=== PATIENT | female | born 1970 | race African-American/Black ===

== ENCOUNTER 2020-06-09 16:39 | Observation (INO) | payer BC, OTHER ==
[2020-06-09] MEDS ORDERED: SODIUM CHLORIDE 0.9% 1,000 ML IV ONE (17:39)
--- NOTE | 2020-06-09 17:44 | ED ---
Altered Mental Status HPI - General Chief Complaint: Altered Mental Status Stated Complaint: Sent by PCP - TERI,Low BP Time Seen by Provider: 06/09/20 16:40 Source: patient Mode of arrival: ambulatory Limitations: no limitations - History of Present Illness Initial Comments: 49-year-old previously healthy female who presents to the emergency department w ith reported altered mental status. is at bedside and provides a history. He reports that he took his in to see Dr. Quach on the as she was complaining of lower extremity pain and back pain. He found the patient's blood pressure below and therefore recommended that she going to the hospital for evaluation. states that she was hospitalized from Tuesday through Tuesday at [facility]. Reports she was diagnosed with a kidney infection. She received trazodone to sleep and was discharged home on antibiotics. She was also taken off of her amlodipine for her hypertension. states that she has been taking her medications as directed. No fevers. She continues to have persistent altered mental status she was picked up from the hospital in the same condition that she has maintained. She has had incontinence of bowel and bladder. Difficulties with ambulation. Reports that it normally takes 2 people to assist her to walk. He reports her altered mental status is extremely transient nature. Reports 1 minute she will be normal and the next minute she is confused and agitated. She normally drinks alcohol daily and has not been drinking recently. Patient has had a 50 pound weight loss. He was supposed to follow up with Dr. Taylor and Dr. Griffin due to her symptoms. was overly concerned due to her increasing the declining status and therefore he took her back and is Dr. Quach's office today. Dr. White recommended transfer to the hospital - Related Data Home Medications Medication Instructions Recorded Confirmed Pantoprazole Sodium [Protonix] 40 mg PO DAILY 06/09/20 06/09/20 amLODIPine [Norvasc] 10 mg PO DAILY 06/09/20 06/09/20 Previous Rx's Medication Instructions Recorded Folic Acid 1 mg PO DAILY #30 tablet 06/12/20 Multivitamins, Thera [Multivitamin 1 tab PO DAILY #30 tablet 06/12/20 (formulary)] Thiamine [Vitamin B-1] 100 mg PO DAILY #30 tablet 06/12/20 Allergies Allergy/AdvReac Type Severity Reaction Status Date / Time No Known Allergies Allergy Verified 06/09/20 18:24 Review of Systems ROS Statement: Those systems with pertinent positive or pertinent negative responses have been documented in the HPI. ROS Other: All systems not noted in ROS Statement are negative. Past Medical History Past Medical History: GERD/Reflux Additional Past Medical History / Comment(s): iron deficiency anemia, low hemoglobic, sickle cell trait History of Any Multi-Drug Resistant Organisms: None Reported Past Surgical History: Hysterectomy, Tubal Ligation Additional Past Surgical History / Comment(s): ovary cyst removed Past Anesthesia/Blood Transfusion Reactions: No Reported Reaction Past Psychological History: Depression Smoking Status: Current every day smoker Past Alcohol Use History: None Reported, Abuse, Daily, Heavy Past Drug Use History: None Reported - Past Family History Mother Family Medical History: Chest Pain / Angina, Diabetes Mellitus Additional Family Medical History / Comment(s): Implanted pacemaker; deficiency: hgb & fe Father Additional Family Medical History / Comment(s): liver cirrhosis General Exam Limitations: altered mental status General appearance: alert, in no apparent distress, anxious, cachectic Head exam: Present: atraumatic, normocephalic, normal inspection Eye exam: Present: normal appearance, PERRL, EOMI. Absent: scleral icterus, conjunctival injection, periorbital swelling ENT exam: Present: normal exam, mucous membranes moist, TM's normal bilaterally Neck exam: Present: normal inspection. Absent: tenderness, meningismus, lymphadenopathy Respiratory exam: Present: normal lung sounds bilaterally. Absent: respiratory distress, wheezes, rales, rhonchi, stridor Cardiovascular Exam: Present: normal rhythm, tachycardia, normal heart sounds. Absent: systolic murmur, diastolic murmur, rubs, gallop, clicks GI/Abdominal exam: Present: soft, normal bowel sounds. Absent: distended, tenderness, guarding, rebound, rigid Rectal exam: Present: normal rectal tone Extremities exam: Present: normal inspection, full ROM, normal capillary refill, other (5/5 strength all 4 extremities). Absent: tenderness, pedal edema, joint swelling, calf tenderness Back exam: Present: normal inspection. Absent: paraspinal tenderness, vertebral tenderness Neurological exam: Present: altered, CN II-XII intact, normal gait, reflexes normal Psychiatric exam: Present: agitated, flat affect Skin exam: Present: warm, dry, intact, normal color. Absent: rash Course Vital Signs 06/09/20 06/09/20 06/09/20 16:40 19:05 19:50 Temperature 98 F Pulse Rate 107 H 85 87 Respiratory 18 16 16 Rate Blood Pressure 97/66 104/80 111/78 O2 Sat by Pulse 99 99 99 Oximetry 06/09/20 20:00 Temperature Pulse Rate 86 Respiratory 16 Rate Blood Pressure 118/79 O2 Sat by Pulse 99 Oximetry Medical Decision Making - Medical Decision Making Upon arrival patient is placed into room 1. A thorough history and physical exam was performed. Patient does follow all commands appropriately. Has strength in all 4 extremities. IV is placed. Laboratory studies were conducted. As the patient does report to pain along her entire cervical, thoracic and lumbar spine I did order CT with contrast. CT of the brain is also ordered as well as a CT of the abdomen because of reported abdominal pain and incontinence. Laboratory studies are reviewed. Sed rate 62. Potassium low at 2.9. Urinalysis continues to demonstrate 36 white blood cells and large leukocyte Estrace. Rare bacteria. This is a straight cath specimen as the patient is reporting incontinence. UDS is negative. Salicylates, acetaminophen and alcohol negative. Coronavirus not detected. Review the imaging is performed. Abdomen and pelvis demonstrates fatty infiltration of the liver with small amount of free fluid in the cul-de-sac. CT of the cervical thoracic and lumbar spine demonstrates no acute findings. Chest x-ray is clear for any cardiopulmonary process. CT of the brain demonstrates white matter hypodensity right posterior parietal lobe probably due to chronic small vessel ischemia. Patient is reevaluated and remained stable in the emergency department. She is given a dose of Rocephin because of her persistent abnormal urinalysis. Potassium is replaced. I did discuss the patient's care with Dr. Wihte. I w ill place neurology on consultation. Patient agreed to the treatment and was sent to the floor in stable condition - Lab Data Result diagrams: 06/12/20 07:04 06/12/20 07:04 Lab Results 06/09/20 06/09/20 06/09/20 Range/Units 17:22 17:22 17:22 WBC 8.9 (3.8-10.6) k/uL RBC 3.51 L (3.80-5.40) m/uL Hgb 10.9 L (11.4-16.0) gm/dL Hct 33.3 L (34.0-46.0) % MCV 94.9 (80.0-100.0) fL MCH 31.1 (25.0-35.0) pg MCHC 32.7 (31.0-37.0) g/dL RDW 12.9 (11.5-15.5) % Plt Count 381 (150-450) k/uL MPV 7.3 Neutrophils % 64 % Lymphocytes % 26 % Monocytes % 3 % Eosinophils % 5 % Basophils % 1 % Neutrophils # 5.7 (1.3-7.7) k/uL Lymphocytes # 2.3 (1.0-4.8) k/uL Monocytes # 0.3 (0-1.0) k/uL Eosinophils # 0.4 (0-0.7) k/uL Basophils # 0.1 (0-0.2) k/uL ESR 62 H (0-20) mm/hr PT 11.5 (9.0-12.0) sec INR 1.1 (<1.2) APTT 24.1 (22.0-30.0) sec Sodium (137-145) mmol/L Potassium (3.5-5.1) mmol/L Chloride (98-107) mmol/L Carbon Dioxide (22-30) mmol/L Anion Gap mmol/L BUN (7-17) mg/dL Creatinine (0.52-1.04) mg/dL Est GFR (CKD-EPI)AfAm (>60 ml/min/1.73 sqM) Est GFR (CKD-EPI)NonAf (>60 ml/min/1.73 sqM) Glucose (74-99) mg/dL POC Glucose (mg/dL) (75-99) mg/dL POC Glu Sheet Sorter ID Calcium (8.4-10.2) mg/dL Total Bilirubin (0.2-1.3) mg/dL AST (14-36) U/L ALT (4-34) U/L Alkaline Phosphatase (38-126) U/L Ammonia (<30) umol/L Creatine Kinase (30-135) U/L Troponin I (0.000-0.034) ng/mL C-Reactive Protein (<10.0) mg/L Total Protein (6.3-8.2) g/dL Albumin (3.5-5.0) g/dL Urine Color Yellow Urine Appearance Clear (Clear) Urine pH 7.0 (5.0-8.0) Ur Specific [facility] 1.042 H (1.001-1.035) Urine Protein Trace H (Negative) Urine Glucose (UA) Negative (Negative) Urine Ketones 1+ H (Negative) Urine Blood Negative (Negative) Urine Nitrite Negative (Negative) Urine Bilirubin Negative (Negative) Urine Urobilinogen <2.0 (<2.0) mg/dL Ur Leukocyte Esterase Large H (Negative) Urine WBC 36 H (0-5) /hpf Ur Squamous Epith Cells 3 (0-4) /hpf Urine Bacteria Rare H (None) /hpf Urine Mucus Occasional H (None) /hpf Salicylates mg/dL Urine Opiates Screen Not Detected (NotDetected) Ur Oxycodone Screen Not Detected (NotDetected) Urine Methadone Screen Not Detected (NotDetected) Ur Propoxyphene Screen Not Detected (NotDetected) Acetaminophen ug/mL Ur Barbiturates Screen Not Detected (NotDetected) U Tricyclic Antidepress Not Detected (NotDetected) Ur Phencyclidine Scrn Not Detected (NotDetected) Ur Amphetamines Screen Not Detected (NotDetected) U Methamphetamines Scrn Not Detected (NotDetected) U Benzodiazepines Scrn Not Detected (NotDetected) Urine Cocaine Screen Not Detected (NotDetected) U Marijuana (THC) Screen Not Detected (NotDetected) Serum Alcohol mg/dL Coronavirus (PCR) (Not Detectd) 06/09/20 06/09/20 06/09/20 Range/Units 17:22 17:22 17:22 WBC (3.8-10.6) k/uL RBC (3.80-5.40) m/uL Hgb (11.4-16.0) gm/dL Hct (34.0-46.0) % MCV (80.0-100.0) fL MCH (25.0-35.0) pg MCHC (31.0-37.0) g/dL RDW (11.5-15.5) % Plt Count (150-450) k/uL MPV Neutrophils % % Lymphocytes % % Monocytes % % Eosinophils % % Basophils % % Neutrophils # (1.3-7.7) k/uL Lymphocytes # (1.0-4.8) k/uL Monocytes # (0-1.0) k/uL Eosinophils # (0-0.7) k/uL Basophils # (0-0.2) k/uL ESR (0-20) mm/hr PT (9.0-12.0) sec INR (<1.2) APTT (22.0-30.0) sec Sodium 142 (137-145) mmol/L Potassium 2.9 L (3.5-5.1) mmol/L Chloride 108 H (98-107) mmol/L Carbon Dioxide 22 (22-30) mmol/L Anion Gap 12 mmol/L BUN <2 L (7-17) mg/dL Creatinine 0.48 L (0.52-1.04) mg/dL Est GFR (CKD-EPI)AfAm >90 (>60 ml/min/1.73 sqM) Est GFR (CKD-EPI)NonAf >90 (>60 ml/min/1.73 sqM) Glucose 81 (74-99) mg/dL POC Glucose (mg/dL) (75-99) mg/dL POC Glu Sheet Sorter ID Calcium 8.7 (8.4-10.2) mg/dL Total Bilirubin 0.7 (0.2-1.3) mg/dL AST 35 (14-36) U/L ALT 13 (4-34) U/L Alkaline Phosphatase 98 (38-126) U/L Ammonia <9 (<30) umol/L Creatine Kinase 46 (30-135) U/L Troponin I <0.012 (0.000-0.034) ng/mL C-Reactive Protein 11.4 H (<10.0) mg/L Total Protein 7.1 (6.3-8.2) g/dL Albumin 3.3 L (3.5-5.0) g/dL Urine Color Urine Appearance (Clear) Urine pH (5.0-8.0) Ur Specific [facility] (1.001-1.035) Urine Protein (Negative) Urine Glucose (UA) (Negative) Urine Ketones (Negative) Urine Blood (Negative) Urine Nitrite (Negative) Urine Bilirubin (Negative) Urine Urobilinogen (<2.0) mg/dL Ur Leukocyte Esterase (Negative) Urine WBC (0-5) /hpf Ur Squamous Epith Cells (0-4) /hpf Urine Bacteria (None) /hpf Urine Mucus (None) /hpf Salicylates <1.0 mg/dL Urine Opiates Screen (NotDetected) Ur Oxycodone Screen (NotDetected) Urine Methadone Screen (NotDetected) Ur Propoxyphene Screen (NotDetected) Acetaminophen <10.0 ug/mL Ur Barbiturates Screen (NotDetected) U Tricyclic Antidepress (NotDetected) Ur Phencyclidine Scrn (NotDetected) Ur Amphetamines Screen (NotDetected) U Methamphetamines Scrn (NotDetected) U Benzodiazepines Scrn (NotDetected) Urine Cocaine Screen (NotDetected) U Marijuana (THC) Screen (NotDetected) Serum Alcohol <10 mg/dL Coronavirus (PCR) (Not Detectd) 06/09/20 06/09/20 Range/Units 19:01 19:39 WBC (3.8-10.6) k/uL RBC (3.80-5.40) m/uL Hgb (11.4-16.0) gm/dL Hct (34.0-46.0) % MCV (80.0-100.0) fL MCH (25.0-35.0) pg MCHC (31.0-37.0) g/dL RDW (11.5-15.5) % Plt Count (150-450) k/uL MPV Neutrophils % % Lymphocytes % % Monocytes % % Eosinophils % % Basophils % % Neutrophils # (1.3-7.7) k/uL Lymphocytes # (1.0-4.8) k/uL Monocytes # (0-1.0) k/uL Eosinophils # (0-0.7) k/uL Basophils # (0-0.2) k/uL ESR (0-20) mm/hr PT (9.0-12.0) sec INR (<1.2) APTT (22.0-30.0) sec Sodium (137-145) mmol/L Potassium (3.5-5.1) mmol/L Chloride (98-107) mmol/L Carbon Dioxide (22-30) mmol/L Anion Gap mmol/L BUN (7-17) mg/dL Creatinine (0.52-1.04) mg/dL Est GFR (CKD-EPI)AfAm (>60 ml/min/1.73 sqM) Est GFR (CKD-EPI)NonAf (>60 ml/min/1.73 sqM) Glucose (74-99) mg/dL POC Glucose (mg/dL) 83 (75-99) mg/dL POC Glu Sheet Sorter ID Chelly Guajardo Calcium (8.4-10.2) mg/dL Total Bilirubin (0.2-1.3) mg/dL AST (14-36) U/L ALT (4-34) U/L Alkaline Phosphatase (38-126) U/L Ammonia (<30) umol/L Creatine Kinase (30-135) U/L Troponin I (0.000-0.034) ng/mL C-Reactive Protein (<10.0) mg/L Total Protein (6.3-8.2) g/dL Albumin (3.5-5.0) g/dL Urine Color Urine Appearance (Clear) Urine pH (5.0-8.0) Ur Specific [facility] (1.001-1.035) Urine Protein (Negative) Urine Glucose (UA) (Negative) Urine Ketones (Negative) Urine Blood (Negative) Urine Nitrite (Negative) Urine Bilirubin (Negative) Urine Urobilinogen (<2.0) mg/dL Ur Leukocyte Esterase (Negative) Urine WBC (0-5) /hpf Ur Squamous Epith Cells (0-4) /hpf Urine Bacteria (None) /hpf Urine Mucus (None) /hpf Salicylates mg/dL Urine Opiates Screen (NotDetected) Ur Oxycodone Screen (NotDetected) Urine Methadone Screen (NotDetected) Ur Propoxyphene Screen (NotDetected) Acetaminophen ug/mL Ur Barbiturates Screen (NotDetected) U Tricyclic Antidepress (NotDetected) Ur Phencyclidine Scrn (NotDetected) Ur Amphetamines Screen (NotDetected) U Methamphetamines Scrn (NotDetected) U Benzodiazepines Scrn (NotDetected) Urine Cocaine Screen (NotDetected) U Marijuana (THC) Screen (NotDetected) Serum Alcohol mg/dL Coronavirus (PCR) Not Detected (Not Detectd) - EKG Data EKG Comments: EKG demonstrates a normal sinus rhythm with a ventricular rate of 83. VA interval 162. QRS 84. QTC of 477. No acute ST segment elevations or depressions Disposition Clinical Impression: Altered mental status, Bladder incontinence Disposition: ADMITTED IP TO THIS HOSP Condition: Stable Is patient prescribed a controlled substance at d/c from ED?: No Decision to Admit Reason: Admit from EC Decision Date: 06/09/20 Decision Time: 19:30
[2020-06-09 18:02] LABS: Basophils # (A) 0.1 k/uL (0-0.2); Basophils % (A) 1 %; Eosinophils # (A) 0.4 k/uL (0-0.7); Eosinophils % (A) 5 %; HCT 33.3 % (34.0-46.0); HGB 10.9 gm/dL (11.4-16.0); Lymphocytes # (A) 2.3 k/uL (1.0-4.8); Lymphocytes % (A) 26 %; MCH 31.1 pg (25.0-35.0); MCHC 32.7 g/dL (31.0-37.0); MCV 94.9 fL (80.0-100.0); Mean Platelet Volume 7.3; Monocytes # (A) 0.3 k/uL (0-1.0); Monocytes % (A) 3 %; Neutrophils # (A) 5.7 k/uL (1.3-7.7); Neutrophils % (A) 64 %; Platelet Count 381 k/uL (150-450); RBC 3.51 m/uL (3.80-5.40); RDW 12.9 % (11.5-15.5); WBC 8.9 k/uL (3.8-10.6)
[2020-06-09 18:16] LABS: ALT 13 U/L (4-34); AST 35 U/L (14-36); Acetaminophen <10.0 ug/mL; African American GFR (CKD) >90 (>60 ml/min/1.73 sqM); Albumin 3.3 g/dL (3.5-5.0); Alcohol <10 mg/dL; Alkaline Phosphatase 98 U/L (38-126); Anion Gap 12 mmol/L; Blood Urea Nitrogen <2 mg/dL (7-17); C Reactive Protein 11.4 mg/L (<10.0); Calcium 8.7 mg/dL (8.4-10.2); Carbon Dioxide 22 mmol/L (22-30); Chloride 108 mmol/L (98-107); Creatine Kinase 46 U/L (30-135); Glucose 81 mg/dL (74-99); Non-African American GFR(CKD) >90 (>60 ml/min/1.73 sqM); Potassium 2.9 mmol/L (3.5-5.1); Salicylate <1.0 mg/dL; Sodium 142 mmol/L (137-145); Total Bilirubin 0.7 mg/dL (0.2-1.3); Total Protein 7.1 g/dL (6.3-8.2)
[2020-06-09 18:17] LABS: INR 1.1 (<1.2); Partial Thromboplastin Time 24.1 sec (22.0-30.0); Prothrombin Time 11.5 sec (9.0-12.0)
[2020-06-09] MEDS ORDERED: POTASSIUM CHLORIDE ER 20 MEQ TAB.ER PO STA (18:38)
[2020-06-09] MEDS ORDERED: POTASSIUM CHLORIDE 20 MEQ in WATER FOR INJECTION 1 100ML.BAG IVPB STA (18:39)
[2020-06-09 18:48] LABS: Erythrocyte Sedimentation Rate 62 mm/hr (0-20)
--- NOTE | 2020-06-09 18:54 | CT ---
EXAMINATION TYPE: CT brain wo con DATE OF EXAM: 06/09/2020 COMPARISON: None HISTORY: confusion, weakness and generalized pain. CT DLP: 1711.2 mGycm Automated exposure control for dose reduction was used. Images obtained without contrast. There is mild cerebral atrophy. There is no mass effect nor midline shift. There is no sign of intrac ranial hemorrhage. The calvarium is intact. There is no evidence of cortical infarct. There is some m ild white matter hypodensity right posterior parietal lobe that measures 2 cm. IMPRESSION: Mild atrophy. White matter hypodensity right posterior parietal lobe probably due to chronic small vessel ischemia. No hemorrhage.
--- NOTE | 2020-06-09 18:55 | XR ---
EXAMINATION TYPE: XR chest 2V DATE OF EXAM: 06/09/2020 COMPARISON: NONE HISTORY: Altered mental status TECHNIQUE: FINDINGS: Heart and mediastinum are within normal limits. Lungs are clear of infiltrate. There is no heart failure. There are no hilar masses. There are a few scattered calcified granulomata. Bony thora x is intact. IMPRESSION: No active cardiopulmonary disease. Normal heart.
[2020-06-09 19:03] LABS: Glucose,Whole Blood 83 mg/dL (75-99)
--- NOTE | 2020-06-09 19:12 | CT ---
EXAMINATION TYPE: CT CervThorLumbar spine w con DATE OF EXAM: 06/09/2020 COMPARISON: None HISTORY: confusion, weakness and generalized pain. CT DLP: 1711.2 mGycm Automated exposure control for dose reduction was used. CONTRAST: Performed with IV Contrast, patient injected with 100 mL of Isovue 300. Images were obtained from the skull base to the S to vertebra with IV contrast. Cervical thoracic and lumbar vertebra have normal spacing and alignment. Posterior elements are intac t. There is no compression fracture. Disc spaces are fairly well-maintained. There is no evidence of thoracic paraspinal mass. I see no bony destructive process. There is no evidence of spinal stenosis. There is no lumbar paraspinal mass. Sacroiliac joints appear intact. There is 2 cm cortical cyst low er pole right kidney. The skull base is intact. There is no sign of pathologic enhancement. IMPRESSION: Negative CT scan of the cervical thoracic and lumbar spine.
--- NOTE | 2020-06-09 19:18 | CT ---
EXAMINATION TYPE: CT abdomen pelvis w con DATE OF EXAM: 06/09/2020 COMPARISON: None HISTORY: confusion, weakness and generalized pain. CT DLP: 1711.2 mGycm Automated exposure control for dose reduction was used. CONTRAST: Performed with IV Contrast, patient injected with 100 mL of Isovue 300. Images obtained from the diaphragm to the floor the pelvis with IV contrast. Lung bases are clear of consolidation. There is minimal subsegmental atelectasis. Heart size is terri l. There is some fatty infiltration of the liver. Spleen is intact. Stomach is intact. There is no pancr eatic mass. Gallbladder appears normal. There is no adrenal mass. Kidneys show satisfactory contrast opacification. There is no hydronephrosi s. There is 2 cm cortical cyst anterior lower pole right kidney. There is no retroperitoneal adenopat hy. Ureters are not dilated. Delayed images show very little contrast in the renal collecting systems . Appendix is posterior and appears normal. Bladder distends smoothly. There is no inguinal hernia. The re is tiny amount of free fluid in the pelvis. Uterus is retroverted. There is no evidence of a pelvi c mass. There is no mesenteric edema. There is no free air. There is no sign of a bowel obstruction. Intestin al pattern is fairly normal. Lumbar spine is intact. The bony pelvis appears intact. IMPRESSION: There is some fatty infiltration of the liver. Normal appendix. Small amount of free fluid in the cul-de-sac of uncertain significance. Delayed images show little contrast in the renal collecting systems that could relate to some degree of renal failure. Clinical correlation needed.
[2020-06-09 19:25] LABS: Amphetamine Screen,Urine Not Detected (NotDetected); Barbiturate Screen,Urine Not Detected (NotDetected); Benzodiazepines Screen,Urine Not Detected (NotDetected); Cocaine Screen,Urine Not Detected (NotDetected); Methadone Screen, Urine Not Detected (NotDetected); Opiate Screen,Urine Not Detected (NotDetected); Oxycodone Screen, Urine Not Detected (NotDetected); Phencyclidine Screen,Urine Not Detected (NotDetected); Tricyclic Antidepressant,Urine Not Detected (NotDetected); Urn Cannabinoid Scrn Not Detected (NotDetected)
[2020-06-09 19:27] LABS: Appearance,Urine Clear (Clear); Bacteria,Urine Rare /hpf; Bilirubin,Urine Negative (Negative); Blood,Urine Negative (Negative); Color,Urine Yellow; Glucose,Urine (UA) Negative (Negative); Ketones,Urine 1+ (Negative); Leukocyte Esterase,Urine Large (Negative); Mucus,Urine Occasional /hpf; Nitrite,Urine Negative (Negative); Protein,Urine Trace (Negative); Specific Gravity,Urine 1.042 (1.001-1.035); Squamous Epithelial Cell,Urine 3 /hpf (0-4); Urobilinogen,Urine <2.0 mg/dL (<2.0); WBC,Urine 36 /hpf (0-5)
[2020-06-09] MEDS ORDERED: cefTRIAXone IN SWFI 1,000 MG/10 ML SYRINGE IVP STA (19:29)
[2020-06-09] MEDS ORDERED: NALOXONE 0.4 MG/ML 1 ML VIAL IV PRN (19:30)
[2020-06-09 21:39] LABS: T4, Free (Free Thyroxine) 1.39 ng/dL (0.78-2.19)
[2020-06-10] MEDS ORDERED: THIAMINE 100 MG TAB PO SCH (09:00)
[2020-06-10 09:20] LABS: Basophils # (A) 0.05 X 10*3/uL (0.00-0.10); Basophils % (A) 0.6 %; Eosinophils % (A) 3.8 %; HCT 27.8 % (37.2-46.3); HGB 9.6 g/dL (12.0-15.0); Lymphocytes # (A) 2.35 X 10*3/uL (0.90-5.00); MCH 31.9 pg (27.0-32.0); MCHC 34.5 g/dL (32.0-37.0); MCV 92.4 fL (80.0-97.0); Mean Platelet Volume 10.1 fL (9.5-12.2); Monocytes # (A) 0.55 X 10*3/uL (0.20-1.00); Neutrophils # (A) 4.57 X 10*3/uL (1.80-7.70); Neutrophils % (A) 58.3 %; Platelet Count 357 X 10*3/uL (140-440); RBC 3.01 X 10*6/uL (4.10-5.20); RDW 12.5 % (11.5-14.5); WBC 7.84 X 10*3/uL (4.50-10.00)
--- NOTE | 2020-06-10 09:26 | P.CNNES ---
History of Present Illness Consult date: 06/10/20 Requesting physician: Kristen Chavez Reason for Consult: altered mental status History of Present Illness: This is a 49-year-old woman history of sickle cell trait, iron deficiency anemia and hypertension who presented to the emergency department on your 06/09/2020 for altered mental status. History is obtained from the patient and medical records. The patient was asked to be brought to the hospital by her primary [facility] (Dr. Quach). The patient has been having altered mental status since being discharged from her recent hospital visit at [facility]. Her altered mentation is transient which she fluctuates. The patient took his to see Dr. Quach on May 31, 2020 for lower extremity pain and back pain. During her visit was found that her blood pressure was low SHE was hospitalized from the Tuesday until Tuesday at [facility] and she was diagnosed with the kidney and infection. She received trazodone as well as antibiotic and was discharged home. She was also taken off of amlodipine for hypertension. She continues to have incontinence of the bladder and bowel and difficulties ambulation. As stated above her mentation fluctuates, she'll be normal for 1 minute then confused and agitated the next. According to the patient she has been having diarrhea for the past one year and it has been have been happening on a daily basis. She notified her primary doctor and she was notified to take Imodium according to her. She drinks 1 can of beer (>12 ounces) and wine on a daily basis and sometimes she stated she drinks until intoxicated. She could not tell me when her last drink was. She stated she has generalized weakness and pain throughout the body. It is documented she lost 50 pound weight loss and not sure in what of time frame. She did acknowledge she is attempting to eat more but having diarrhea for the last one year. She denied of focal weakness, visual disturbance or difficulty getting her words out. It is reported in the ED report that she is a two person assist and having difficulty ambulation. Patient was supposed to follow-up with Dr. Taylor and Dr. Patterson for her symptoms. She denies history of seizures as childhood or adult. Work-up in the hospital consisted of: Initial vitals: Blood pressure of 97/66 with a heart rate of 107, respiratory of 18, temperature of 98 Fahrenheit and pulse ox of 99% room air. CT of the head is reported as white matter hypodensity right posterior parietal lobe probably due to chronic small vessel ischemia. No hemorrhage. EKG was reported as normal sinus rhythm. Nonspecific ST abnormality. Abnormal EKG. CT cervical thoracic and lumbar spine was ordered by the primary team and it's reported as negative CT scan of the cervical thoracic and lumbar. Patient initial POC glucose is 83. Ammonia level is less than 9. TSH is 4.85 which is a slightly elevated but the free T4 is 1.39 which is normal. AST of 35 and ALT of 13. Initial potassium is 2.9 which is low. CRP is 11.4 which is elevated. ESR is 62. Urine analysis shows that the the leukocyte esterase was large, urine white blood cell is 36 urine bacteria is a rare seem is suggestive of urinary tract infection. Urine drug screen was negative. Serum alcohol was less than 10, acetaminophen less than 10 and the salicylates is less than 1.0. Review of Systems Review of system: The 12 point system was reviewed and apparent positive and negative per HPI. Past Medical History Past Medical History: GERD/Reflux Additional Past Medical History / Comment(s): iron deficiency anemia, low hemoglobic, sickle cell trait History of Any Multi-Drug Resistant Organisms: None Reported Past Surgical History: Hysterectomy, Tubal Ligation Additional Past Surgical History / Comment(s): ovary cyst removed Past Anesthesia/Blood Transfusion Reactions: No Reported Reaction Past Psychological History: Depression Smoking Status: Current every day smoker Past Alcohol Use History: None Reported, Abuse, Daily, Heavy Past Drug Use History: None Reported - Past Family History Mother Family Medical History: Chest Pain / Angina, Diabetes Mellitus Additional Family Medical History / Comment(s): Implanted pacemaker; deficiency: hgb & fe Father Additional Family Medical History / Comment(s): liver cirrhosis Medications and Allergies Home Medications Medication Instructions Recorded Confirmed Type Ibuprofen [Advil] 400 mg PO BID PRN 06/09/20 06/09/20 History Pantoprazole Sodium [Protonix] 40 mg PO DAILY 06/09/20 06/09/20 History amLODIPine [Norvasc] 10 mg PO DAILY 06/09/20 06/09/20 History Allergies Allergy/AdvReac Type Severity Reaction Status Date / Time No Known Allergies Allergy Verified 06/09/20 18:24 Physical Examination - Vital Signs Vital Signs: Vital Signs Temp Pulse Pulse Resp BP BP Pulse Ox 06/10/20 04:46 98.1 F 73 18 106/65 98 06/09/20 20:51 98.1 F 91 16 118/78 100 06/09/20 20:00 86 16 118/79 99 06/09/20 19:50 87 16 111/78 99 06/09/20 19:05 85 16 104/80 99 06/09/20 16:40 98 F 107 H 18 97/66 99 Intake and Output 06/09/20 06/10/20 06/10/20 22:59 06:59 14:59 Intake Total 1000 Balance 1000 Intake: Amount of Fluid Infused ( 1000 ml) Other: Voiding Method Diaper Incontinent # Voids 1 Weight 46.5 kg GENERAL: The patient is lying in bed who is cachectic and complaining of having generalized pain. CHEST: The heart rate is regular rate rhythm. No murmurs to auscultation. LUNG: Clear to auscultation bilaterally no wheezing noted throughout. Not labored breathing. ABDOMEN/GI: Bowel sounds present in all 4 quadrants. No tenderness to palpation throughout. NEUROLOGICAL: Higher mental function: The patient is awake, alert, oriented to self, place and time. Patient is able to identify objects such as pen, glassess and cup. Patient is following simple and complex commands. No aphasia and no neglect. Cranial nerves: The pupils are round, equal and reactive to light and a ccommodation. Visual blevins are full to confrontation throughout. Extraocular movement is intact no nystagmus is noted. Facial sensation is normal to touch throughout. The facial strength is normal throughout. Hearing is normal bilaterally to hand rub. Tongue is midline and moved [id number] without any difficulty. No dysarthria is noted. Shoulder shrug is normal bilaterally. Motor: Gait seems normal and required minimal assistance (one person assist). The strength is difficult to assess because of her generalized pain but has strength of 4+ to 5- throughout. She did not seem to have focality from limited motor strength exam. Is cachectic throughout. Cerebellum: Normal finger to nose bilaterally. Sensation: Sensation is normal to touch throughout. Reflexes (right/left): 2+ throughout except ankles are 0-1 bilaterally. Plantars are downgoing bilaterally. Results Coagulation study: PT of 11.5, INR 1.1 and PTT is 24.1. Coronavirus: Not detected. - Laboratory Findings CBC and BMP: 06/10/20 05:30 06/10/20 05:30 Abnormal Lab Findings: Abnormal Labs 06/09/20 06/09/20 06/09/20 17:22 17:22 17:22 RBC 3.51 L Hgb 10.9 L Hct 33.3 L ESR 62 H Potassium 2.9 L Chloride 108 H BUN <2 L Creatinine 0.48 L C-Reactive Protein 11.4 H Albumin 3.3 L Procalcitonin TSH Ur Specific [place] 1.042 H Urine Protein Trace H Urine Ketones 1+ H Ur Leukocyte Esterase Large H Urine WBC 36 H Urine Bacteria Rare H Urine Mucus Occasional H 06/09/20 06/09/20 19:56 19:56 RBC Hgb Hct ESR Potassium Chloride BUN Creatinine C-Reactive Protein Albumin Procalcitonin 0.10 H TSH 4.850 H Ur Specific [place] Urine Protein Urine Ketones Ur Leukocyte Esterase Urine WBC Urine Bacteria Urine Mucus Assessment and Plan Assessment: This is a 49-year-old woman that was sent by her primary care physician to the hospital for altered mental status for the last 1 week and half. She's having fluctuation of the mentation. She is also having urinary and bowel incontinence. In the last 1 week and a half she was found that to have low blood pressure. She was recently hospitalized at outside facility for UTI. Patient stated she has diarrhea for the last one year (on daily basis), drinks alcohol on daily basis. Encephalopathy unknown exact cause. One of the possibilities could be due to underlying infection UTI. Generalized weakness Chronic diarrhea (for the last one year) with significant weight loss Cachectic Urinary and bowel incontinence Urinary tract infection Acute hypokalemia Alcohol use Sickle cell trait Iron deficiency anemia Plan: CT of the head is reported as white matter hypodensity right posterior parietal lobe probably due to chronic small vessel ischemia. No hemorrhage. I ordered MRI the brain with and without gadolinium and MRI Lumbar w/ and w/o (since reported having problems with ambulation and documented as 2 person assist. But on my examination she was minimally a one person assist). I ordered vitamin B12, folate, B6 and hemoglobin A1c. I ordered a routine EEG. I'll not start the patient on antiepileptic drugs unless there is epileptiform discharges or seizure on the EEG. Because of the patient weight loss and alcohol use I started the patient on thiamine 100 mg daily. I also ordered a 2-D echo as well as a carotid duplex. I started the patient on the banana bag with the folate and thiamine. I consulted physical therapy and occupation therapy. I think the patient will benefit from a gastroenterology consult especially with this chronic diarrhea for the last 1 year but I will defer the decision to the primary team. Infection disease team has been consulted. Regarding the the patient all call use, the patient was counseled on alcohol cessation. Recommend CIWA protocol but will defer that to the primary team. I'll defer the rest of the medical management to the primary team. The plan was discussed with the patient's nurse. Thank you for the consultation. Rocky Carcamo MD Neuro-Hospitalist Time with Patient: Greater than 30
[2020-06-10 09:48] LABS: African American GFR (CKD) 140.8 (60.0-200.0); Blood Urea Nitrogen <5.0 mg/dL (9.0-27.0); Calcium 8.1 mg/dL (8.7-10.3); Carbon Dioxide 22.3 mmol/L (21.6-31.8); Chloride 109 mmol/L (96-109); Glucose 99 mg/dL (70-110); Non-African American GFR(CKD) 121.4 (60.0-200.0); Potassium 2.9 mmol/L (3.5-5.5); Sodium 144 mmol/L (135-145)
--- NOTE | 2020-06-10 11:31 | MR ---
EXAMINATION TYPE: MR brain/lspine wo/w con DATE OF EXAM: 06/10/2020 COMPARISON: CT brain 06/09/2020 HISTORY: Altered mental status, weakness in legs with incontinence, low back pain. CONTRAST: Performed utilizing 4.5 mL intravenous Gadavist gadolinium contrast. TECHNIQUE: Multiplanar, multiecho imaging on a 3.0 Malika magnet is performed through the brain. Stud y is performed within 24 hours of arrival to the hospital. The craniovertebral junction is normal. The pituitary is normal. Diffusion-weighted imaging is performed. No abnormal hyperintensity is present to suggest an acute i ntracranial infarct or acute ischemic change. There are scattered punctate areas of hyperintensity on T2 and Inversion Recovery weighted sequences which are non-specific but can be related to microvascular ischemic changes. Ventricles and sulci are appropriate for the patient age. No abnormal enhancement is evident. IMPRESSIONS: 1. Scattered deep white matter chronic appearing microvascular ischemic type changes EXAMINATION TYPE: MR brain/lspine wo/w con DATE OF EXAM: 06/10/2020 COMPARISON: None HISTORY: Altered mental status, weakness in legs with incontinence, low back pain. CONTRAST: 4.5 mL intravenous Gadavist. TECHNIQUE: Multiplanar, multisequence images of the lumbar spine were acquired. FINDINGS: Cord terminates at the T12-L1 level. Disc heights are preserved. There is normal disc hydr ation. Vertebral body alignment is normal. Note is made of some mild facet hypertrophy at the L5-S1 level. No focal disc herniations or significant disc bulges are evident. No spinal canal stenosis or neural foraminal stenosis is present. No abnormal enhancement. IMPRESSION: 1. Normal MRI lumbar spine. 2. No suspicious abnormality to account for incontinence.
[2020-06-10] MEDS: 1: MVI, ADULT NO.4 WITH VIT K 10 ML, THIAMINE 100 MG, FOLIC ACID 1 MG in SODIUM CHLORIDE IV SCH ×12 (11:38→23:28)
[2020-06-10 13:34] VITALS: BMI 16.0
--- NOTE | 2020-06-10 13:39 | P.CONS ---
History of Present Illness - Reason for Consult Consult date: 06/10/20 - History of Present Illness HISTORY OF PRESENT ILLNESS This is a 49-year-old -[place] female that was recently hospitalized at [facility] with past history of iron deficiency anemia, sickle cell trait, GERD. Patient was treated at [facility] for urinary tract infection was sent home on antibiotics. Patient is unable to recall if she took her antibiotics. She states she is confused and her would no better. She denies any headache. She states she has a little shortness of breath. Abdomen is sore. She has chronic diarrhea which she states is worse. She has less than 7 episodes per 24 hours. She denies having any dysuria. Patient has been afebrile since admission. No leukocytosis. Creatinine 0.4. Urinalysis leukoesterase large, WBCs 36 and bacteria rare. COVID-19 not detected. CAT scan of the cervical and thoracic, lumbar spine negative. CAT scan of the brain reveals chronic small vessel ischemia. Chest x-ray reveals no acute cardio pulmonary disease. Normal heart. CAT scan of the abdomen and pelvis with contrast revealed fatty infiltration of the liver. Normal appendix. Small amount of free air in the cul-de-sac of uncertain significance. Contrast in the renal system related to some degree of renal failure. MRI of the brain revealed scattered deep white matter chronic appearing microvascular ischemic changes. REVIEW OF SYSTEMS Constitutional: No fever, no chills, no night sweats. No weight change. No weakness, fatigue or lethargy. EENT: No headache. No nasal drainage or congestion. No epistaxis. No sore throat. Lungs: Reports shortness of breath, cough, no sputum production. No wheezing. Cardiovascular: No chest pain, no lower extremity edema. No lightheadedness or dizziness. No syncopal episodes. Abdominal: Reports abdominal sore. No nausea, vomiting. No diarrhea. No constipation. No loss of appetite. Genitourinary: No dysuria, increased frequency, urgency. No urinary retention. Musculoskeletal: No myalgias. No muscle weakness. Integumentary: No wounds, no lesions. No rash or pruritus. Neurologic: No aphasia. No facial droop. Reports change in mentation. Endocrine: No abnormal blood sugars. PHYSICAL EXAMINATION Gen: This is a cachectic-appearing 49-year-old -[place] female. Patient is resting bed and appears in no acute distress. VS: Afebrile, heart rate 81, blood pressure 122/79, pulse ox 100% on room air. HEENT: Head is atraumatic, normocephalic. Pupils equal, round. Sclerae is anicteric. NECK: Supple. No JVD. No lymphadenopathy. No thyromegaly. LUNGS: Clear to auscultation. No wheezes or rhonchi. No intercostal retractions. HEART: Regular rate and rhythm. No murmur. ABDOMEN: Soft. Bowel sounds are present. No masses. No tenderness. No suprapubic tenderness. EXTREMITIES: No pedal edema. No calf tenderness. NEUROLOGICAL: Patient is awake, alert and oriented x3. Cranial nerves 2 through 12 are grossly intact. ASSESSMENT Acute urinary tract infection Metabolic encephalopathy Chronic diarrhea Daily alcohol use PLAN Rocephin 1 g IV piggyback daily Urine culture in progress Follow blood culture results Stool studies have been ordered by GI Further recommendations based on patient's clinical course Thank you kindly for this consultation The above dictated assessment and findings were discussed with Dr. Arita. The impression and plan of care have been directed as dictated. Nichelle Barragan nurse practitioner acting as scribe for Dr. Arita. Past Medical History Past Medical History: GERD/Reflux Additional Past Medical History / Comment(s): iron deficiency anemia, low hemoglobic, sickle cell trait History of Any Multi-Drug Resistant Organisms: None Reported Past Surgical History: Hysterectomy, Tubal Ligation Additional Past Surgical History / Comment(s): ovary cyst removed Past Anesthesia/Blood Transfusion Reactions: No Reported Reaction Past Psychological History: Depression Smoking Status: Current every day smoker Past Alcohol Use History: None Reported, Abuse, Daily, Heavy Past Drug Use History: None Reported - Past Family History Mother Family Medical History: Chest Pain / Angina, Diabetes Mellitus Additional Family Medical History / Comment(s): Implanted pacemaker; deficiency: hgb & fe Father Additional Family Medical History / Comment(s): liver cirrhosis Medications and Allergies Home Medications Medication Instructions Recorded Confirmed Type Ibuprofen [Advil] 400 mg PO BID PRN 06/09/20 06/09/20 History Pantoprazole Sodium [Protonix] 40 mg PO DAILY 06/09/20 06/09/20 History amLODIPine [Norvasc] 10 mg PO DAILY 06/09/20 06/09/20 History Allergies Allergy/AdvReac Type Severity Reaction Status Date / Time No Known Allergies Allergy Verified 06/09/20 18:24 Physical Exam Vitals: Vital Signs Temp Pulse Pulse Resp BP BP Pulse Ox 06/10/20 11:28 97.7 F 81 16 122/79 100 06/10/20 04:46 98.1 F 73 18 106/65 98 06/09/20 20:51 98.1 F 91 16 118/78 100 06/09/20 20:00 86 16 118/79 99 06/09/20 19:50 87 16 111/78 99 06/09/20 19:05 85 16 104/80 99 06/09/20 16:40 98 F 107 H 18 97/66 99 Intake and Output 06/09/20 06/10/20 06/10/20 22:59 06:59 14:59 Intake Total 1000 Balance 1000 Intake: Amount of Fluid Infused ( 1000 ml) Other: Voiding Method Diaper Incontinent # Voids 1 # Bowel Movements 1 Weight 46.5 kg Results CBC & Chem 7: 06/10/20 05:30 06/10/20 05:30 Labs: Abnormal Lab Results - Last 24 Hours (Table) 06/09/20 06/09/20 06/09/20 Range/Units 17:22 17:22 17:22 RBC 3.51 L (3.80-5.40) m/uL Hgb 10.9 L (11.4-16.0) gm/dL Hct 33.3 L (34.0-46.0) % ESR 62 H (0-20) mm/hr Potassium 2.9 L (3.5-5.1) mmol/L Chloride 108 H (98-107) mmol/L Anion Gap (4.00-12.00) mmol/L BUN <2 L (7-17) mg/dL Creatinine 0.48 L (0.52-1.04) mg/dL Calcium (8.7-10.3) mg/dL C-Reactive Protein 11.4 H (<10.0) mg/L Albumin 3.3 L (3.5-5.0) g/dL Vitamin B12 (200.0-944.0) pg/mL Procalcitonin (0.02-0.09) ng/mL TSH (0.465-4.680) mIU/L Ur Specific [place] 1.042 H (1.001-1.035) Urine Protein Trace H (Negative) Urine Ketones 1+ H (Negative) Ur Leukocyte Esterase Large H (Negative) Urine WBC 36 H (0-5) /hpf Urine Bacteria Rare H (None) /hpf Urine Mucus Occasional H (None) /hpf 06/09/20 06/09/20 06/10/20 Range/Units 19:56 19:56 05:30 RBC 3.01 L (3.80-5.40) m/uL Hgb 9.6 L (11.4-16.0) gm/dL Hct 27.8 L (34.0-46.0) % ESR (0-20) mm/hr Potassium (3.5-5.1) mmol/L Chloride (98-107) mmol/L Anion Gap (4.00-12.00) mmol/L BUN (7-17) mg/dL Creatinine (0.52-1.04) mg/dL Calcium (8.7-10.3) mg/dL C-Reactive Protein (<10.0) mg/L Albumin (3.5-5.0) g/dL Vitamin B12 (200.0-944.0) pg/mL Procalcitonin 0.10 H (0.02-0.09) ng/mL TSH 4.850 H (0.465-4.680) mIU/L Ur Specific [place] (1.001-1.035) Urine Protein (Negative) Urine Ketones (Negative) Ur Leukocyte Esterase (Negative) Urine WBC (0-5) /hpf Urine Bacteria (None) /hpf Urine Mucus (None) /hpf 06/10/20 06/10/20 Range/Units 05:30 05:30 RBC (3.80-5.40) m/uL Hgb (11.4-16.0) gm/dL Hct (34.0-46.0) % ESR (0-20) mm/hr Potassium 2.9 L (3.5-5.1) mmol/L Chloride (98-107) mmol/L Anion Gap 12.70 H (4.00-12.00) mmol/L BUN <5.0 L (7-17) mg/dL Creatinine 0.4 L (0.52-1.04) mg/dL Calcium 8.1 L (8.7-10.3) mg/dL C-Reactive Protein (<10.0) mg/L Albumin (3.5-5.0) g/dL Vitamin B12 976.0 H (200.0-944.0) pg/mL Procalcitonin (0.02-0.09) ng/mL TSH (0.465-4.680) mIU/L Ur Specific [place] (1.001-1.035) Urine Protein (Negative) Urine Ketones (Negative) Ur Leukocyte Esterase (Negative) Urine WBC (0-5) /hpf Urine Bacteria (None) /hpf Urine Mucus (None) /hpf Microbiology - Last 24 Hours (Table) 06/09/20 17:22 Urine Culture - Preliminary Urine,Catheterized
--- NOTE | 2020-06-10 14:24 | US ---
EXAMINATION TYPE: US carotid duplex BILAT DATE OF EXAM: 06/10/2020 COMPARISON: NONE CLINICAL HISTORY: stroke. EXAM MEASUREMENTS: RIGHT: Peak Systolic Velocity (PSV) cm/sec ----- Right CCA: 66.9 ----- Right ICA: 104.0 ----- Right ECA: 87.1 ICA/CCA ratio: 1.6 RIGHT: End Diastole cm/sec ----- Right CCA: 20.8 ----- Right ICA: 41.6 ----- Right ECA: 16.2 LEFT: Peak Systolic Velocity (PSV) cm/sec ----- Left CCA: 86.9 ----- Left ICA: 106.0 ----- Left ECA: 85.7 ICA/CCA ratio: 1.2 LEFT: End Diastole cm/sec ----- Left CCA: 26.2 ----- Left ICA: 78.7 ----- Left ECA: 16.8 VERTEBRALS (direction of flow): Right Vertebral: Antegrade Left Vertebral: Antegrade Rhythm: Slight arrhythmia Bilateral wall thickening. Plaque seen in bilateral bulbs. No significant stenosis. No elevated ana ocities. IMPRESSION: Mild atheromatous plaquing without significant flow-limiting stenosis. Criteria for Assigning % of Stenosis / Diameter reduction (Estimation based on the indirect measurements of the internal carotid artery velocities (ICA PSV). 1. Normal (no stenosis)=ICA PSV < 125 cm/s: ratio < 2.0: ICA EDV<40 cm/s. 2. Less than 50% stenosis=ICA PSV < 125 cm/s: ratio < 2.0: ICA EDV<40 cm/s. 3. 50 to 69% stenosis=ICA PSV of 125 to 230 cm/s: ration 2.0 ? 4.0: ICA EDV 40-100 cm/s. 4. Greater than 70% stenosis to near occlusion= ICA PSV > 230 cm/s: ratio > 4.0: ICA EDV > 100 cm/s. 5. Near occlusion= ICA PSV velocities may be low or undetectable: variable ratio and ICA EDV. 6. Total occlusion=unable to detect flow.
[2020-06-10 15:13] LABS: Hemoglobin A1C 4.7 % (4.0-6.0)
[2020-06-10] MEDS ORDERED: Potassium Replacement Protocol 1 EACH MISC MISCELLANE PRN (16:29)
[2020-06-10] MEDS ORDERED: PEG 3350-NA SULF,BICARB,CL/KCL 4,000 ML BOTTLE PO ONE (17:00)
[2020-06-10] MEDS ORDERED: LIDOCAINE 1% (10MG/ML) FOR IV START INTRADERMA PRN (17:21)
[2020-06-10] MEDS ORDERED: LACTATED RINGERS 1,000 ML IV SCH (17:30)
[2020-06-10] MEDS: POTASSIUM CHLORIDE 10 MEQ in WATER FOR INJECTION 1 100ML.BAG IVPB SCH ×5 (17:40→23:25)
--- NOTE | 2020-06-10 18:51 | EEG ---
ELECTROENCEPHALOGRAM REPORT DATE OF SERVICE: 06/10/2020. CLINICAL HISTORY: This is a 49-year-old female with altered mental status. The video EEG is obtained to evaluate for seizure and epileptiform activity. RELEVANT MEDICATION: The patient is not on any anti-epileptic drugs. EEG TYPE: A routine 21-channel EEG is performed with video using the 10/20 electrode placement system. DESCRIPTION: Only wakefulness is obtained. During wakefulness, there is a posterior-dominant rhythm of low to moderate voltage, reactive, well modulated, of 8 to 8.5 hertz activity. There is no physiological stage II sleep seen. INTERICTAL AND ICTAL: None. ACTIVATION PROCEDURE: Photic stimulation did not evoke a positive response. There is no photic abnormalities during the photic stimulation. Hyperventilation is not performed. CLINICAL INTERPRETATION: This is a normal routine EEG. There are no focal slowing, epileptiform discharges or seizure during the EEG. Clinical correlation is recommended. JOLANTA / JIMI: [id number] / [id number]
--- NOTE | 2020-06-10 22:07 | CONS ---
CONSULTATION DATE OF DICTATION: 06/10/2020 REASON FOR CONSULTATION: Diarrhea and weight loss. HISTORY OF PRESENT ILLNESS: The patient is a 49-year-old -Swedish female admitted to the hospital because of severe diarrhea for the last one year's duration. She has been having bowel movements anywhere from 7 to 8 a day which are loose to watery in consistency, including nocturnal diarrhea, and she lost about 25 to 30 pounds since the onset of these symptoms. Apparently the patient was admitted to the [facility] about a month ago with anemia and UTI, treated with antibiotics, and was discharged home. The patient is an extremely poor historian. She does complain of cramping lower abdominal pain. Denies any rectal bleeding or melena. She thinks she lost about 25 to 30 pounds in the last one year. She does not recall being started on any new medications. No family history of inflammatory bowel disease. In the ER, she did have a CT of the abdomen and pelvis done that showed evidence of fatty liver, but otherwise it was unremarkable. Because of altered mental status she also had MRI of the brain that showed scattered deep white matter chronic changes. PAST MEDICAL HISTORY: Significant for hypertension, gastroesophageal reflux disease. HOME MEDICATIONS: Advil, Protonix and Norvasc. ALLERGIES: NONE. SOCIAL HISTORY: Chronic smoker. No alcohol use. FAMILY HISTORY: Mother had diabetes mellitus and history of pacemaker implantation. Father had liver cirrhosis. PAST SURGICAL HISTORY: Hysterectomy, tubal ligation, colonoscopy in 2016 and ovarian cyst removed. REVIEW OF SYSTEMS: CARDIOPULMONARY: She denies any chest pain or shortness of breath. GENITOURINARY: No dysuria or hematuria. MUSCULOSKELETAL: Unremarkable. SKIN: Unremarkable. ENDOCRINE: Unremarkable. PSYCHIATRIC: Unremarkable. NEUROLOGY: Some mild altered mental status which has resolved. ENT/VISION: Unremarkable. CONSTITUTIONAL: Weight loss of 25 pounds. No fever, chills, night sweats. PHYSICAL EXAMINATION: She appears comfortable. No apparent distress. Vital signs are stable. Blood pressure is 122/79, pulse rate 81, temperature 97.7. HEENT examination unremarkable. Conjunctivae pink. Sclerae anicteric. Oral cavity no lesions. NECK: No JVD or lymph node enlargement. CHEST: Clear to auscultation. HEART: Regular rate and rhythm. ABDOMEN: Soft. It was scaphoid. Mild tenderness in the left lower quadrant area. EXTREMITIES: No pedal edema. NEUROLOGIC: Alert, oriented to name and place; not to time. LABS/IMAGING: Labs done from yesterday show WBC 8.9, hemoglobin 10.9, platelets normal. Sedimentation rate is 62, potassium 2.9. BUN is 2, creatinine 0.48. AST, ALT, T- bilirubin and alkaline phosphatase are within normal limits. TSH is 4.8, free T4 is 1.39. Urinalysis: large leukocyte esterase. Coronavirus PCR is negative. CT of the abdomen and pelvis showed some fatty infiltration of the liver, but otherwise unremarkable. IMPRESSION: 1. Chronic diarrhea for the last one year's duration with progressive weight loss almost 25 to 30 pounds. The patient denies any rectal bleeding or melena. No family history of inflammatory bowel disease. CT scan of the abdomen was unremarkable with no evidence of any thickening of the colon noted. The patient does not recall being started on any new medications in the last one year. Rule out infectious colitis versus inflammatory bowel disease. 2. Urinary tract infection, on broad-spectrum antibiotics. 3. History of hypertension. 4. History of gastroesophageal reflux disease. RECOMMENDATIONS: 1. Obtain stool cultures and C difficile toxin. 2. Will proceed with EGD and colonoscopy tomorrow. I discussed with the patient risks, benefits and complications, and she is agreeable to it. Thank you for this consultation. JOLANTA / JIMI: [id number] /
[2020-06-11] MEDS: POTASSIUM CHLORIDE 10 MEQ in WATER FOR INJECTION 1 100ML.BAG IVPB SCH ×5 (00:36→11:20)
[2020-06-11 03:14] LABS: Gliadin AB IgA, Deaminated NEGATIVE (NEGATIVE); Gliadin AB IgA, Unit 9.2 U/mL; Gliadin AB IgG, Deaminated NEGATIVE (NEGATIVE)
[2020-06-11] MEDS: 1: MVI, ADULT NO.4 WITH VIT K 10 ML, THIAMINE 100 MG, FOLIC ACID 1 MG in SODIUM CHLORIDE IV SCH ×8 (06:54→20:23)
[2020-06-11] MEDS ORDERED: MAGNESIUM CITRATE 296 ML BOTTLE PO STA (07:44)
--- NOTE | 2020-06-11 08:41 | P.HPIM ---
History of Present Illness H&P Date: 06/10/20 Chief Complaint: TERI Irizarry is a 49 yo F with PMH of alcohol abuse, anemia, sickle cell trait who presented to the ED on the recommendation of her PCP with continued altered mental status and confusion. She was recently hospitalized at [facility] with abdominal pain and CT at that time showed possible pyelonephritis and pt was treated with antobiotics. She also noted at that time a weight loss of approximately 50 lbs in the past year and has been having diarrhea as well. Her notes that she has been more withdrawn and confused and answering questions inappropriately. Pt today does endorse abdominal pain and diarrhea and is otherwise feeling fine. She denies any blackouts or loss of balance. She does endorse blurry vision. She has continued to have diarrhea today. On presentation she was afebrile, vitals stable, WBC 7.8, CRP 11.3, Cr 0.4. CT abd/pelvis unr emarkable. Review of Systems All systems: negative Constitutional: Reports malaise, Reports weakness, Denies chills, Denies fever Eyes: denies blurred vision, denies pain Ears, nose, mouth and throat: Denies headache, Denies sore throat Cardiovascular: Denies chest pain, Denies shortness of breath Respiratory: Denies cough Gastrointestinal: Reports abdominal pain, Reports diarrhea, Denies nausea, Denies vomiting Genitourinary: Denies dysuria, Denies hematuria Musculoskeletal: Denies myalgias Integumentary: Denies pruritus, Denies rash Neurological: Reports as per HPI, Reports confusion, Reports weakness, Denies numbness Psychiatric: Denies anxiety, Denies depression Endocrine: Denies fatigue, Denies weight change Past Medical History Past Medical History: GERD/Reflux Additional Past Medical History / Comment(s): iron deficiency anemia, low hemoglobic, sickle cell trait History of Any Multi-Drug Resistant Organisms: None Reported Past Surgical History: Hysterectomy, Tubal Ligation Additional Past Surgical History / Comment(s): ovary cyst removed Past Anesthesia/Blood Transfusion Reactions: No Reported Reaction Past Psychological History: Depression Smoking Status: Current every day smoker Past Alcohol Use History: None Reported, Abuse, Daily, Heavy Past Drug Use History: None Reported - Past Family History Mother Family Medical History: Chest Pain / Angina, Diabetes Mellitus Additional Family Medical History / Comment(s): Implanted pacemaker; deficiency: hgb & fe Father Additional Family Medical History / Comment(s): liver cirrhosis Medications and Allergies Home Medications Medication Instructions Recorded Confirmed Type Ibuprofen [Advil] 400 mg PO BID PRN 06/09/20 06/09/20 History Pantoprazole Sodium [Protonix] 40 mg PO DAILY 06/09/20 06/09/20 History amLODIPine [Norvasc] 10 mg PO DAILY 06/09/20 06/09/20 History Allergies Allergy/AdvReac Type Severity Reaction Status Date / Time No Known Allergies Allergy Verified 06/09/20 18:24 Physical Exam Vitals: Vital Signs Temp Pulse Resp BP Pulse Ox 06/11/20 04:51 98.4 F 98 16 135/86 100 06/10/20 19:51 98.5 F 80 16 149/80 100 06/10/20 19:29 80 16 06/10/20 11:28 97.7 F 81 16 122/79 100 Intake and Output 06/10/20 06/11/20 06/11/20 22:59 06:59 14:59 Intake Total 1011.2 Balance 1011.2 Intake: Intake, IV Titration 1011.2 Amount Mvi, Adult No.4 with Vit 1011.2 K 10 ml Thiamine 100 mg Folic Acid 1 mg In Sodium Chloride 0.9% 1,000 ml @ 100 mls/hr IV .BY DURATION [facility] Rx#: [id number] Other: Voiding Method Toilet Toilet Diaper Diaper Incontinent Incontinent # Voids 3 # Bowel Movements 1 3 General: well developed thin female in NAD. Vitals reviewed HEENT: normocephalic, mucus membranes moist Neck: supple, no thyromegaly, no JVD Lymph: no cervical or axillary LAD CV: RRR, no murmur Lungs: clear throughout, normal effort Abd: soft, generalized tenderness, BS+ Neuro: withdrawn, no focal deficit, str 5/5 anne Skin: warm and dry Results CBC & Chem 7: 06/10/20 05:30 06/11/20 04:10 Labs: Abnormal Lab Results - Last 24 Hours (Table) 06/10/20 06/10/20 06/10/20 Range/Units 05:30 05:30 05:30 RBC 3.01 L (4.10-5.20) X 10*6/uL Hgb 9.6 L (12.0-15.0) g/dL Hct 27.8 L (37.2-46.3) % ESR (0-20) mm/Hr Potassium 2.9 L (3.5-5.5) mmol/L Anion Gap 12.70 H (4.00-12.00) mmol/L BUN <5.0 L (9.0-27.0) mg/dL Creatinine 0.4 L (0.6-1.5) mg/dL Calcium 8.1 L (8.7-10.3) mg/dL C-Reactive Protein (0.0-0.8) mg/dL Vitamin B12 976.0 H (200.0-944.0) pg/mL 06/10/20 06/10/20 06/11/20 Range/Units 05:30 11:15 04:10 RBC (4.10-5.20) X 10*6/uL Hgb (12.0-15.0) g/dL Hct (37.2-46.3) % ESR 65 H (0-20) mm/Hr Potassium 3.3 L (3.5-5.5) mmol/L Anion Gap (4.00-12.00) mmol/L BUN (9.0-27.0) mg/dL Creatinine (0.6-1.5) mg/dL Calcium (8.7-10.3) mg/dL C-Reactive Protein 1.3 H (0.0-0.8) mg/dL Vitamin B12 (200.0-944.0) pg/mL Microbiology - Last 24 Hours (Table) 06/10/20 17:15 Stool Culture - Preliminary Stool 06/09/20 19:45 Blood Culture - Preliminary Blood No Growth after 24 hours 06/09/20 17:22 Urine Culture - Final Urine,Catheterized Thrombosis Risk Factor Assmnt - Choose All That Apply Any of the Below Risk Factors Present?: Yes Each Factor Represents 1 point: Age 41-60 years Other Risk Factors: No Other congenital or acquired thrombophilia - If yes, enter type in comment: No Thrombosis Risk Factor Assessment Total Risk Factor Score: 1 Thrombosis Risk Factor Assessment Level: Low Risk Assessment and Plan (1) Altered mental status Current Visit: Yes Status: Acute Code(s): R41.82 - ALTERED MENTAL STATUS, UNSPECIFIED SNOMED Code(s): 975332262 (2) Abdominal pain Current Visit: Yes Status: Acute Code(s): R10.9 - UNSPECIFIED ABDOMINAL PAIN SNOMED Code(s): 79491964 (3) Diarrhea Current Visit: Yes Status: Acute Code(s): R19.7 - DIARRHEA, UNSPECIFIED SNOMED Code(s): 00637712 (4) Weight loss of more than 10% body weight Current Visit: Yes Status: Acute Code(s): R63.4 - ABNORMAL WEIGHT LOSS SNOMED Code(s): 78063315 (5) Confusion Current Visit: Yes Status: Acute Code(s): R41.0 - DISORIENTATION, UNSPECIFIED SNOMED Code(s): 286386713 Plan: 1. AMS, confusion. Neurology consult for further evaluation. Carotid doppler, MRI brain ordered 2. Abdominal pain and diarrhea with significant weight loss. GI consult. Stool studies ordered. Pt scheduled for colonoscopy 3. UTI, possible pyelonephritis, recently treated at [facility]. Start rocephin. ID consult for antibiotic management
--- NOTE | 2020-06-11 10:25 | P.PN ---
Subjective Progress Note Date: 06/11/20 HISTORY OF PRESENT ILLNESS This is a 49-year-old -[place] female that was recently hospitalized at [facility] with past history of iron deficiency anemia, sickle cell trait, GERD. Patient was treated at [facility] for urinary tract infection was sent home on antibiotics. Patient is unable to recall if she took her antibiotics. She states she is confused and her would no better. She denies any headache. She states she has a little shortness of breath. Abdomen is sore. She has chronic diarrhea which she states is worse. She has less than 7 episodes per 24 hours. She denies having any dysuria. Patient has been afebrile since admission. No leukocytosis. Creatinine 0.4. Urinalysis leukoesterase large, WBCs 36 and bacteria rare. COVID-19 not d etected. CAT scan of the cervical and thoracic, lumbar spine negative. CAT scan of the brain reveals chronic small vessel ischemia. Chest x-ray reveals no acute cardio pulmonary disease. Normal heart. CAT scan of the abdomen and pelvis with contrast revealed fatty infiltration of the liver. Normal appendix. Small amount of free air in the cul-de-sac of uncertain significance. Contrast in the renal system related to some degree of renal failure. MRI of the brain revealed scattered deep white matter chronic appearing microvascular ischemic changes. 2/3: She denies having any cough or shortness of breath. She states she has some lower abdominal left-sided pain. Patient complains of having diarrhea but she has undergone prep for EGD and colonoscopy which was scheduled for today. U nfortunately, patient was unable to finish the prep and may not be prepared for procedures. Patient has been afebrile, heart rate 98, blood pressure 135/86, pulse ox 100% on room air. Urine culture is been finalized with no growth at 18 hours. Blood culture no growth at 24 hours. Stool culture in progress. Cryptosporidium and Giardia negative. C. difficile toxin negative. PHYSICAL EXAMINATION Gen: This is a cachectic-appearing 49-year-old -Aust[place] female. Patient is resting bed and appears in no acute distress. VS: Afebrile, heart rate 81, blood pressure 122/79, pulse ox 100% on room air. HEENT: Head is atraumatic, normocephalic. Pupils equal, round. Sclerae is anicteric. NECK: Supple. No JVD. No lymphadenopathy. No thyromegaly. LUNGS: Clear to auscultation. No wheezes or rhonchi. No intercostal retractions. HEART: Regular rate and rhythm. No murmur. ABDOMEN: Soft. Bowel sounds are present. No masses. No tenderness. No suprapubic tenderness. EXTREMITIES: No pedal edema. No calf tenderness. NEUROLOGICAL: Patient is awake, alert and oriented x3. Cranial nerves 2 through 12 are grossly intact. ASSESSMENT Acute urinary tract infection Metabolic encephalopathy Chronic diarrhea Daily alcohol use PLAN Rocephin 1 g IV piggyback daily Urine culture in progress Follow blood culture results Further recommendations based on patient's clinical course Thank you kindly for this consultation The above dictated assessment and findings were discussed with Dr. Arita. The impression and plan of care have been directed as dictated. Nichelle Barragan nurse practitioner acting as scribe for Dr. Arita. Objective - Vital Signs Vital signs: Vital Signs Temp 98.4 F 06/11/20 04:51 Pulse 98 06/11/20 04:51 Resp 16 06/11/20 04:51 BP 135/86 06/11/20 04:51 Pulse Ox 100 06/11/20 04:51 Intake & Output 06/10/20 06/11/20 06/11/20 18:59 06:59 18:59 Intake Total 1011.2 Balance 1011.2 Weight 46.5 kg Intake: Intake, IV Titration 1011.2 Amount Mvi, Adult No.4 with Vit 1011.2 K 10 ml Thiamine 100 mg Folic Acid 1 mg In Sodium Chloride 0.9% 1,000 ml @ 100 mls/hr IV .BY DURATION [facility] Rx#: [id number] Other: Voiding Method Toilet Toilet Toilet Diaper Diaper Diaper Incontinent Incontinent Incontinent # Voids 3 # Bowel Movements 1 3 - Labs CBC & Chem 7: 06/10/20 05:30 06/11/20 04:10 Labs: Abnormal Lab Results - Last 24 Hours (Table) 06/10/20 06/10/20 06/10/20 Range/Units 05:30 05:30 05:30 ESR (0-20) mm/Hr Potassium 2.9 L (3.5-5.5) mmol/L Anion Gap 12.70 H (4.00-12.00) mmol/L BUN <5.0 L (9.0-27.0) mg/dL Creatinine 0.4 L (0.6-1.5) mg/dL Calcium 8.1 L (8.7-10.3) mg/dL C-Reactive Protein 1.3 H (0.0-0.8) mg/dL Vitamin B12 976.0 H (200.0-944.0) pg/mL 06/10/20 06/11/20 Range/Units 11:15 04:10 ESR 65 H (0-20) mm/Hr Potassium 3.3 L (3.5-5.5) mmol/L Anion Gap (4.00-12.00) mmol/L BUN (9.0-27.0) mg/dL Creatinine (0.6-1.5) mg/dL Calcium (8.7-10.3) mg/dL C-Reactive Protein (0.0-0.8) mg/dL Vitamin B12 (200.0-944.0) pg/mL Microbiology - Last 24 Hours (Table) 06/10/20 17:15 Stool Culture - Preliminary Stool 06/09/20 19:45 Blood Culture - Preliminary Blood No Growth after 24 hours 06/09/20 17:22 Urine Culture - Final Urine,Catheterized
[2020-06-11] MEDS ORDERED: Potassium Replacement Protocol 1 EACH MISC MISCELLANE PRN (10:54)
--- NOTE | 2020-06-11 11:34 | P.PN ---
Subjective Progress Note Date: 06/11/20 Laura Irizarry is a 49 yo F with PMH of alcohol abuse, anemia, sickle cell trait who presented to the ED on the recommendation of her PCP with continued altered mental status and confusion. She was recently hospitalized at [facility] with abdominal pain and CT at that time showed possible pyelonephritis and pt was treated with antobiotics. She also noted at that time a weight loss of approximately 50 lbs in the past year and has been having diarrhea as well. Her notes that she has been more withdrawn and confused and answering questions inappropriately. Pt today does endorse abdominal pain and diarrhea and is otherwise feeling fine. She denies any blackouts or loss of balance. She does endorse blurry vision. She has continued to have diarrhea today. On presentation she was afebrile, vitals stable, WBC 7.8, CRP 11.3, Cr 0.4. CT abd/pelvis unremarkable. 06/11/20 maintained on gentle IV fluid hydration/banana bag. evaluated by GI, scheduled for EGD and colonoscopy-but patient was unable to finish prep. Neuro workup completed; EEG reportedly normal , carotid Doppler reported no hemodynamic significant stenosis, brain/spine MRI reported scattered deep white matter chronic appearing microvascular ischemic type changes-normal MRI lumbar spine .No further blurred vision reported this morning. Denies abdominal pain. Denies chest pain, palpitations or shortness of breath. Afebrile,C. difficile toxin negative, stool culture in progress, urine culture reporting no growth at 18 hours, preliminary blood culture reported no growth at 24 hours. Cryptosporidium and Giardia negative. Objective - Vital Signs Vital signs: Vital Signs Temp 98.4 F 06/11/20 04:51 Pulse 98 06/11/20 04:51 Resp 16 06/11/20 04:51 BP 135/86 06/11/20 04:51 Pulse Ox 100 06/11/20 04:51 Intake & Output 06/10/20 06/11/20 06/11/20 18:59 06:59 18:59 Intake Total 1011.2 Balance 1011.2 Weight 46.5 kg Intake: Intake, IV Titration 1011.2 Amount Mvi, Adult No.4 with Vit 1011.2 K 10 ml Thiamine 100 mg Folic Acid 1 mg In Sodium Chloride 0.9% 1,000 ml @ 100 mls/hr IV .BY DURATION [facility] Rx#: [id number] Other: Voiding Method Toilet Toilet Toilet Diaper Diaper Diaper Incontinent Incontinent Incontinent # Voids 3 # Bowel Movements 1 3 - Exam General: Cachectic, sitting up in bed, NAD. Vitals reviewed HEENT: normocephalic, mucus membranes moist Neck: supple, no thyromegaly, no JVD CV: RRR, no murmur Lungs: clear throughout, normal effort Abd: soft, diffuse left lower quadrant tenderness, BS+ Neuro: withdrawn, no focal deficit, str 5/5 anne Skin: warm and dry - Labs CBC & Chem 7: 06/10/20 05:30 06/11/20 04:10 Labs: Abnormal Lab Results - Last 24 Hours (Table) 06/10/20 06/10/20 06/10/20 Range/Units 05:30 05:30 11:15 ESR 65 H (0-20) mm/Hr Potassium (3.5-5.1) mmol/L C-Reactive Protein 1.3 H (0.0-0.8) mg/dL Vitamin B12 976.0 H (200.0-944.0) pg/mL 06/11/20 Range/Units 04:10 ESR (0-20) mm/Hr Potassium 3.3 L (3.5-5.1) mmol/L C-Reactive Protein (0.0-0.8) mg/dL Vitamin B12 (200.0-944.0) pg/mL Microbiology - Last 24 Hours (Table) 06/10/20 17:15 Stool Culture - Preliminary Stool 06/09/20 19:45 Blood Culture - Preliminary Blood No Growth after 24 hours 06/09/20 17:22 Urine Culture - Final Urine,Catheterized Assessment and Plan Assessment: Altered mental status, acute metabolic encephalopathy, etiology unclear, possible Wernicke encephalopathy secondary to alcohol abuse UTI, possible pyelonephritis, recently treated at [facility] Abdominal pain, GI following Weight loss of more than 10% body weight Alcohol abuse, alcohol dependence Chronic diarrhea Urinary and bowel incontinence UTI Iron deficient anemia Hypokalemia Plan: Continue on current medication regime ,monitoring and symptomatic treatment. Potassium supplementation ordered. Stool cultures pending. Scheduled for both EGD and colonoscopy though patient has not completed prep. Neuro workup completed recommendations noted. Continues on IV antibiotics as per infectious disease. Discharge planning in progress for tomorrow pending clearance and final DC recommendations from all consults. The impression and plan of care has been dictated as directed. : I performed a history and examination of this patient, discussed the same with the dictator. I agree with the dictator's note ,documented as a scribe. Any additional findings or plans will be noted.
--- NOTE | 2020-06-11 11:44 | ECHOF ---
Referral Reason:stroke MEASUREMENTS -------- HEIGHT: 170.2 cm WEIGHT: 46.3 kg BP: 135/86 RVIDd: 2.3 cm (< 3.3) IVSd: 1.0 cm (0.6 - 1.1) LVIDd: 3.3 cm (3.9 - 5.3) LVPWd: 1.3 cm (0.6 - 1.1) IVSs: 1.3 cm LVIDs: 2.3 cm LVPWs: 1.8 cm LAESV Index (A-L): 23.17 ml/m Ao Diam: 3.3 cm (2.0 - 3.7) AV Cusp: 2.2 cm (1.5 - 2.6) MV E Pineda: 0.72 m/s MV DecT: 182 ms MV A Pineda: 0.62 m/s MV E/A Ratio: 1.15 RAP: 5.00 mmHg RVSP: 17.32 mmHg FINDINGS -------- Sinus rhythm. This was a technically adequate study. The left ventricular size is normal. Overall left ventricular systolic function is normal with, an EF between 55 - 60 %. The diastolic filling pattern is normal for the age of the patient 7.62. The right ventricle is normal in size. Normal LA size by volume 22+/-6 ml/m2. The right atrial size is normal. Interatrial and interventricular septum intact. There is no evidence of aortic regurgitation. There is no evidence of aortic stenosis. Mild mitral regurgitation is present. Mild tricuspid regurgitation present. There is no evidence of pulmonary hypertension. The right v entricular systolic pressure, as measured by Doppler, is 17.32mmHg. There is no pulmonic regurgitation present. The aortic root size is normal. IVC Not well visulized. There is no pericardial effusion. CONCLUSIONS -------- 1. The left ventricular size is normal. 2. Overall left ventricular systolic function is normal with, an EF between 55 - 60 %. 3. The diastolic filling pattern is normal for the age of the patient 7.62 4. Mild mitral regurgitation is present. 5. Mild tricuspid regurgitation present. NETWORK TECHNICAL ANALYST: Flores Elkins [facility]
--- NOTE | 2020-06-11 14:08 | P.PN ---
Subjective Progress Note Date: 06/11/20 The patient was seen at beside and feels about the same as yesterday. She denies any worsening of her condition. Denies new neurological problems. Per the patient's nurse she has not had any tremors especially since patient has chronic alcohol. According to patient she smokes half a pack a day for years. Patient had the some blood levels such as cryptosporidium which is negative as well as Giardia which is negative. C. diff is negative Anti-gliadin IgA IgG seems negative as well as transglutaminase IgG seems negative the IgA is 1.1 which is considered negative. Objective - Vital Signs Vital signs: Vital Signs Temp 97.7 F 06/11/20 11:45 Pulse 79 06/11/20 11:45 Resp 16 06/11/20 11:45 BP 151/86 06/11/20 11:45 Pulse Ox 100 06/11/20 11:45 Intake & Output 06/10/20 06/11/20 06/11/20 18:59 06:59 18:59 Intake Total 1011.2 Balance 1011.2 Weight 46.5 kg Intake: Intake, IV Titration 1011.2 Amount Mvi, Adult No.4 with Vit 1011.2 K 10 ml Thiamine 100 mg Folic Acid 1 mg In Sodium Chloride 0.9% 1,000 ml @ 100 mls/hr IV .BY DURATION [facility] Rx#: [id number] Other: Voiding Method Toilet Toilet Toilet Diaper Diaper Diaper Incontinent Incontinent Incontinent # Voids 3 1 # Bowel Movements 1 3 4 - Exam GENERAL: The patient is lying in bed who is cachectic and complaining of having generalized pain. NEUROLOGICAL: Higher mental function: The patient is awake, alert, oriented to self, place and time. Patient is able to identify objects such as pen, glassess and cup. Patient is following simple and complex commands. No aphasia and no neglect. Cranial nerves: The pupils are round, equal and reactive to light and accommodation. Visual blevins are full to confrontation throughout. Extraocular movement is intact no nystagmus is noted. Facial sensation is normal to touch throughout. The facial strength is normal throughout. Hearing is normal bilaterally to hand rub. Tongue is midline and moved [id number] without any difficulty. No dysarthria is noted. Shoulder shrug is normal bilaterally. Motor: Gait seems normal and required minimal assistance (one person assist). The strength is difficult to assess because of her generalized pain but has s trength of 4+ to 5- throughout. She did not seem to have focality from limited motor strength exam. Is cachectic throughout. Cerebellum: Normal finger to nose bilaterally. Sensation: Sensation is normal to touch throughout. Reflexes (right/left): 2+ throughout except ankles are 0-1 bilaterally. Plantars are downgoing bilaterally. - Labs CBC & Chem 7: 06/10/20 05:30 06/11/20 04:10 Labs: Abnormal Lab Results - Last 24 Hours (Table) 06/10/20 06/10/20 06/11/20 Range/Units 05:30 11:15 04:10 ESR 65 H (0-20) mm/Hr Potassium 3.3 L (3.5-5.1) mmol/L C-Reactive Protein 1.3 H (0.0-0.8) mg/dL Microbiology - Last 24 Hours (Table) 06/10/20 17:15 Stool Culture - Preliminary Stool 06/09/20 19:45 Blood Culture - Preliminary Blood No Growth after 24 hours 06/09/20 17:22 Urine Culture - Final Urine,Catheterized Assessment and Plan Assessment: This is a 49-year-old woman that was sent by her primary care physician to the hospital for altered mental status for the last 1 week and half. She's having fluctuation of the mentation. She is also having urinary and bowel incontinence . In the last 1 week and a half she was found that to have low blood pressure. She was recently hospitalized at outside facility for UTI. Patient stated she has diarrhea for the last one year (on daily basis), drinks alcohol on daily basis. Reported Encephalopathy unknown exact cause. One of the possibilities could be due to underlying infection UTI and chronic alcohol use (currently since hospital stay she has not been encephalopathic) Generalized weakness possibly due to chronid diarrhea Chronic diarrhea (for the last one year) with significant weight loss Cachectic Urinary and bowel incontinence Urinary tract infection Acute hypokalemia Alcohol use Tobacco use Sickle cell trait Iron deficiency anemia Plan: CT of the head is reported as white matter hypodensity right posterior parietal lobe probably due to chronic small vessel ischemia. No hemorrhage. MRI the brain with and without gadolinium: It is reported as scattered deep white matter chronic-appearing microvascular ischemia type changes. MRI Lumbar w/ and w/o: Was reported as normal MRI lumbar spine. No suspicious abnormalities FOR incontinence. EEG on 06/10/2020 is normal. There are no focal slowing, applicable discharges or seizure on EEG. 2-D echo: Is reported as being overall left ventricle systolic function is normal with ejection fraction 55-60%. There is no evidence of aortic stenosis.There is no evidence of pulmonary hypertension. Intra-arterial an intraventricular septum is intact. Carotid duplex is reported as mild atheromatous plaquing without significant flow limiting stenosis. vitamin B12: 976 which is considered normal. RBC folate: 746 which is considered normal. Vitamin B6: 7 (normal is 5-50). hemoglobin A1c: 4.7: Normal. physical therapy and occupation therapy are consulted. Because of the patient weight loss and alcohol use I started the patient on thiamine 100 mg daily. The patient on the banana bag with the folate and thiamine. Gastroenterology team are on board and was notified by nurse that patient is schedule for EGD and colonoscopy tomorrow for her chronic diarrhea. Infection disease team has been consulted. Regarding the the patient alcohol cessation and cessation of tobacco use. I'll defer the rest of the medical management to the primary team. The plan was discussed with the patient's nurse. Will follow-up with the patient sporadically. Rocky Carcamo MD Neuro-Hospitalist Time with Patient: Less than 30
--- NOTE | 2020-06-11 15:14 | P.PN ---
Subjective Progress Note Date: 06/11/20 Principal diagnosis: chronic diarrhea 1 year duration A pleasant 49-year-old -[place] female patient who came in for altered mental status. Patient also with complaints of diarrhea up to 10 times a day over the past 1 year. She states she has lost 20-30 pounds as well. Anything she eats or drinks comes right through her. Last colonoscopy was 2016 for anemia which showed a normal colon. Patient states she's never had a workup for celiac disease or food ALLERGIES. Objective - Vital Signs Vital signs: Vital Signs Temp 98.4 F 06/11/20 04:51 Pulse 98 06/11/20 04:51 Resp 16 06/11/20 04:51 BP 135/86 06/11/20 04:51 Pulse Ox 100 06/11/20 04:51 Intake & Output 06/10/20 06/11/20 06/11/20 18:59 06:59 18:59 Intake Total 1011.2 Balance 1011.2 Weight 46.5 kg Intake: Intake, IV Titration 1011.2 Amount Mvi, Adult No.4 with Vit 1011.2 K 10 ml Thiamine 100 mg Folic Acid 1 mg In Sodium Chloride 0.9% 1,000 ml @ 100 mls/hr IV .BY DURATION [facility] Rx#: [id number] Other: Voiding Method Toilet Toilet Toilet Diaper Diaper Diaper Incontinent Incontinent Incontinent # Voids 3 # Bowel Movements 1 3 - Exam General appearance: The patient is alert, thin,oriented, appears in no acute distress. Flat affect. HET: Head is normocephalic and atraumatic. Conjunctiva pink. Sclera anicteric. Neck: Supple without lymphadenopathy. Abdomen: Soft, thin, epigastric tenderness, nondistended with bowel sounds. No guarding or rigidity. Extremities: Normal skin color and turgor. No pedal edema Neurological: No focal deficits. Alert and oriented 3. - Labs CBC & Chem 7: 06/10/20 05:30 06/11/20 13:44 Labs: Abnormal Lab Results - Last 24 Hours (Table) 06/10/20 06/10/20 06/10/20 Range/Units 05:30 05:30 11:15 ESR 65 H (0-20) mm/Hr Potassium (3.5-5.1) mmol/L C-Reactive Protein 1.3 H (0.0-0.8) mg/dL Vitamin B12 976.0 H (200.0-944.0) pg/mL 06/11/20 Range/Units 04:10 ESR (0-20) mm/Hr Potassium 3.3 L (3.5-5.1) mmol/L C-Reactive Protein (0.0-0.8) mg/dL Vitamin B12 (200.0-944.0) pg/mL Microbiology - Last 24 Hours (Table) 06/10/20 17:15 Stool Culture - Preliminary Stool 06/09/20 19:45 Blood Culture - Preliminary Blood No Growth after 24 hours 06/09/20 17:22 Urine Culture - Final Urine,Catheterized Assessment and Plan (1) Diarrhea Narrative/Plan: A 49-year-old lady who came in with complaints of chronic diarrhea for the last one years duration with progressive weight loss of approximately 20-30 pounds. The patient denies any rectal bleeding or melena. No family history of auditory bowel disease. Computed tomography scan of the abdomen was unremarkable with no evidence of any thickening of the colon noted. The patient does not recall being started on any new medications in the past 1 year. Rule out infectious colitis versus inflammatory bowel disease Current Visit: Yes Status: Acute Code(s): R19.7 - DIARRHEA, UNSPECIFIED SNOMED Code(s): 43448198 (2) Urinary tract infection Narrative/Plan: On Broad-spectrum antibiotic Current Visit: Yes Status: Acute Code(s): N39.0 - URINARY TRACT INFECTION, SITE NOT SPECIFIED SNOMED Code(s): 15442741 (3) GERD (gastroesophageal reflux disease) Current Visit: Yes Status: Acute Code(s): K21.9 - GASTRO-ESOPHAGEAL REFLUX DISEASE WITHOUT ESOPHAGITIS SNOMED Code(s): 419256285 (4) Altered mental status Narrative/Plan: Neurology following patient Current Visit: Yes Status: Acute Code(s): R41.82 - ALTERED MENTAL STATUS, UNSPECIFIED SNOMED Code(s): 710389133 Plan: 1. Supportive care 2. Patient may have clear liquid diet 3. Nothing by mouth after midnight 4. Continue with bowel prep and finished by midnight 5. Patient rescheduled for EGD and colonoscopy tomorrow 6. Obtain stool cultures and C. difficile toxin 7. Celiac panel ordered and reviewed AQ for this consultation we will continue to follow Dr. Rivas Patterson I agree with the dictator's note, documented as a scribe by Norma August.
[2020-06-12] MEDS: POTASSIUM CHLORIDE 10 MEQ in WATER FOR INJECTION 1 100ML.BAG IVPB SCH ×2 (02:54→04:34)
[2020-06-12] MEDS: 1: MVI, ADULT NO.4 WITH VIT K 10 ML, THIAMINE 100 MG, FOLIC ACID 1 MG in SODIUM CHLORIDE IV SCH ×4 (06:25)
[2020-06-12 11:16] LABS: HCT 28.7 % (37.2-46.3); HGB 9.7 g/dL (12.0-15.0); MCH 31.6 pg (27.0-32.0); MCHC 33.8 g/dL (32.0-37.0); MCV 93.5 fL (80.0-97.0); Platelet Count 353 X 10*3/uL (140-440); RBC 3.07 X 10*6/uL (4.10-5.20); RDW 12.6 % (11.5-14.5); WBC 7.79 X 10*3/uL (4.50-10.00)
[2020-06-12 12:09] LABS: African American GFR (CKD) 140.8 (60.0-200.0); Calcium 8.5 mg/dL (8.7-10.3); Carbon Dioxide 19.6 mmol/L (21.6-31.8); Chloride 111 mmol/L (96-109); Glucose 67 mg/dL (70-110); Non-African American GFR(CKD) 121.4 (60.0-200.0); Potassium 3.8 mmol/L (3.5-5.5); Sodium 143 mmol/L (135-145)
[2020-06-12] MEDS ORDERED: IV FLUID CONTINUATION 800 ML IV ONE (12:15)
[2020-06-12] MEDS ORDERED: LIDOCAINE 1% INJ 10MG/ML (20 ML MDV) ONE (12:22)
[2020-06-12] MEDS ORDERED: PROPOFOL 10 MG/ML 20 ML VIAL IV ONE (12:22)
[2020-06-12 12:32] LABS: Blood Urea Nitrogen <5.0 mg/dL (9.0-27.0)
[2020-06-12] MEDS ORDERED: LOPERAMIDE 2 MG CAP PO PRN (12:42)
--- NOTE | 2020-06-12 12:42 | P.PCN ---
Date of Procedure: 06/12/20 Procedure(s) Performed: Brief history: Patient is a pleasant 49-year-old -[place] female admitted hospital with progressive weight loss of 30 pounds in the last 1 year duration. His been having diarrhea with 4-5 loose watery bowel movements daily. l. She also has upper abdominal discomfort. Hence scheduled for an upper endoscopy as well as colonoscopy to evaluate further. Procedure performed: Esophagogastroduodenoscopy with biopsy Colonoscopy with biopsy Preoperative diagnosis: Chronic diarrhea, abdominal pain and weight loss of 2 years duration Anesthesia: MAC Procedure: After informed consent was obtained from the patient was brought into the endoscopy unit and IV sedation was administered by anesthesia under continuous monitoring. Initially upper endoscopy was done. The Olympus GF 160 video endoscope was inserted inserted into the mouth and esophagus intubated without any difficulty and was gradually advanced into the stomach and duodenum and carefully examined. The bulb and second part of the duodenum appeared normal. Biopsies were done from the duodenum to rule out celiac disease. The scope was then withdrawn into the stomach adequately insufflated with air and upon careful examination the antrum had mild gastritis and Versed from this area. The body, cardia and fundus appeared normal. The scope was then withdrawn into the esophagus. The GE junction was located at 38 cm to the incisors. Small hiatal hernia noted. It appeared regular with no erythema erosions or ulcerations. Rest of the esophagus appeared normal. Patient tolerated the procedure well. At this time the patient continued to remain sedation. Initial digital rectal examination was normal. Olympus CF 160 video colonoscope was then inserted into the rectum and gradually advanced to the cecum without any difficulty. Careful examination was performed as the scope was gradually being withdrawn. The prep was excellent. The cecum, ascending colon, transverse colon, descending colon, sigmoid colon and rectum appeared normal. Random biopsies were done from ascending and descending colon to rule out metastatic/collagenous colitis Retroflexion was performed in the rectum and small internal hemorrhoids were noted. Patient tolerated the procedure well. Impression: 1. Upper endoscopy revealed mild gastritis and small hiatal hernia 2. Colonoscopy was essentially within normal limits with no evidence of colitis or colorectal neoplasia. Small internal hemorrhoids seen. Recommendations: Findings of this examination were discussed with the patient . She was advised to follow with the biopsy results. Diet will be advanced as tolerated. She will be started on Imodium 2 tablets 4 times daily as needed for the diarrhea.
[2020-06-12 13:17] VITALS: BP 117/74; PULSE 79; RESP 12; TEMP 97.5
--- NOTE | 2020-06-12 13:31 | XR ---
EXAMINATION TYPE: XR foot complete LT DATE OF EXAM: 06/12/2020 CLINICAL HISTORY: Numbness and pain. Possible plantar surface foreign body. TECHNIQUE: Frontal, lateral, and oblique images of the left foot are obtained. COMPARISON: None FINDINGS: There is no acute fracture/dislocation evident in the left foot. Slight hallux valgus posi tioning first metatarsophalangeal joint with mild narrowing and spurring. The Calzada's toe was presen t. Some flexion in the toes is seen. Superficial to the posterior inferior portion of calcaneus there is small 4 mm lucent area on the lateral view could reflect superficial ulcer or small foreign body, correlate clinically. Mild to moderate diffuse subcutaneous edema is present. No bony destruction. IMPRESSION: As above .
--- NOTE | 2020-06-12 15:23 | P.DS ---
Providers Date of admission: 06/09/20 19:44 Expected date of discharge: 06/12/20 Attending physician: Frankie Quach MD Consults: 06/09/20 19:42 Consult Physician Urgent Consulting Provider: Rocky Carcamo Consult Reason/Comments: altered mental status Do you want consulting provider notified?: Yes 06/09/20 19:51 Consult Physician Urgent Consulting Provider: Marlo Arita Consult Reason/Comments: altered mental status, uti Do you want consulting provider notified?: Yes 06/10/20 09:00 Consult Physician Urgent Consulting Provider: Ángel Hennessy Consult Reason/Comments: diarrhea x 1 year, weight loss Do you want consulting provider notified?: Yes Primary care physician: Frankie Quach MD Hospital Course: Final Diagnoses: Altered mental status, acute metabolic encephalopathy, etiology unclear, possibly related to ETOH abuse, underlyring UTI UTI, possible pyelonephritis, recently treated at [facility] Abdominal pain, GI following Weight loss of more than 10% body weight Alcohol abuse, alcohol dependence Chronic diarrhea, status post upper endoscopy reportedly mild gastritis and small hiatal hernia, colonoscopy essentially within normal limits with no evidence of colitis or colorectal neoplasia, small internal hemorrhoids. Urinary and bowel incontinence UTI Iron deficient anemia Hypokalemia, resolved Hospital course:Laura Irizarry is a 49 yo F with PMH of alcohol abuse, anemia, sickle cell trait who presented to the ED on the recommendation of her PCP with continued altered mental status and confusion. She was recently hospitalized at [facility] with abdominal pain and CT at that time showed possible pyelonephritis and pt was treated with antobiotics. She also noted at that time a weight loss of approximately 50 lbs in the past year and has been having diarrhea as well. Her notes that she has been more withdrawn and confused and answering questions inappropriately. Pt today does endorse abdominal pain and diarrhea and is otherwise feeling fine. She denies any blackouts or loss of balance. She does endorse blurry vision. She has continued to have diarrhea today. On presentation she was afebrile, vitals stable, WBC 7.8, CRP 11.3, Cr 0.4. CT abd/pelvis unremarkable. 06/11/20 maintained on gentle IV fluid hydration/banana bag. evaluated by GI, scheduled for EGD and colonoscopy-but patient was unable to finish prep. Neuro workup completed; EEG reportedly normal , carotid Doppler reported no hemodynamic significant stenosis, brain/spine MRI reported scattered deep white matter chronic appearing microvascular ischemic type changes-normal MRI lumbar spine .No further blurred vision reported this morning. Denies abdominal pain. Denies chest pain, palpitations or shortness of breath. Afebrile,C. difficile t oxin negative, stool culture in progress, urine culture reporting no growth at 18 hours, preliminary blood culture reported no growth at 24 hours. Cryptosporidium and Giardia negative. Completed upper endoscopy reportedly mild gastritis and small hiatal hernia, colonoscopy essentially within normal limits with no evidence of colitis or colorectal neoplasia, small internal hemorrhoids seen. Tolerated procedures well. Cleared by all consults for discharge. Patient will be discharged home today in a stable condition with guarded prognosis. Patient advised to follow- up in clinic regarding left foot x-ray reporting possible small foreign body or superficial ulcer. Afebrile, normal WBC. The impression and plan of care has been dictated as directed. : I performed a history and examination of this patient, discussed the same with the dictator. I agree with the dictator's note ,documented as a scribe. Any additional findings or plans will be noted. Patient Condition at Discharge: Stable Plan - Discharge Summary Discharge Rx Participant: No New Discharge Prescriptions: New Folic Acid 1 mg PO DAILY #30 tablet Multivitamins, Thera [Multivitamin (formulary)] 1 tab PO DAILY #30 tablet Thiamine [Vitamin B-1] 100 mg PO DAILY #30 tablet Continue Pantoprazole Sodium [Protonix] 40 mg PO DAILY amLODIPine [Norvasc] 10 mg PO DAILY Discontinued Ibuprofen [Advil] 400 mg PO BID PRN PRN Reason: Pain Discharge Medication List Pantoprazole Sodium [Protonix] 40 mg PO DAILY 06/09/20 [History] amLODIPine [Norvasc] 10 mg PO DAILY 06/09/20 [History] Folic Acid 1 mg PO DAILY #30 tablet 06/12/20 [Rx] Multivitamins, Thera [Multivitamin (formulary)] 1 tab PO DAILY #30 tablet 06/12/20 [Rx] Thiamine [Vitamin B-1] 100 mg PO DAILY #30 tablet 06/12/20 [Rx] Follow up Appointment(s)/Referral(s): Frankie Quach MD [Primary Care Provider] - 06/16/20 2:30 pm Lorna Patterson MD [STAFF PHYSICIAN] - 06/26/20 1:00 pm (patient needs to call office before visit to set up referral.she has [facility].) Patient Instructions/Handouts: Abuse of Alcohol (DC), Acute Abdominal Pain (DC), Altered Mental Status (ED) Activity/Diet/Wound Care/Special Instructions: alcohol cessation and cessation of tobacco use. antibx as per ID Discharge Disposition: HOME SELF-CARE
== END 2020-06-12 15:00 | disposition home or self-care (01) ==
LOC: EC 16:39 → 5NMEDONC 19:44
PROVIDERS: ADMIT Family Medicine; ATTEND Family Medicine
DX: G93.41 Metabolic encephalopathy (principal); D50.9 Iron deficiency anemia, unspecified; D57.3 Sickle-cell trait; E87.6 Hypokalemia; F10.20 Alcohol dependence, uncomplicated; F17.200 Nicotine dependence, unspecified, uncomplicated; I10 Essential (primary) hypertension; K21.9 Gastro-esophageal reflux disease without esophagitis; K29.70 Gastritis, unspecified, without bleeding; K44.9 Diaphragmatic hernia without obstruction or gangrene; K52.9 Noninfective gastroenteritis and colitis, unspecified; K64.8 Other hemorrhoids; K76.0 Fatty (change of) liver, not elsewhere classified; N15.9 Renal tubulo-interstitial disease, unspecified; N39.0 Urinary tract infection, site not specified; R32 Unspecified urinary incontinence; R64 Cachexia; Z20.822 Contact with and (suspected) exposure to COVID-19; Z79.899 Other long term (current) drug therapy; Z83.3 Family history of diabetes mellitus; Z90.710 Acquired absence of both cervix and uterus
CPT/HCPCS: 96366 ×2; 96367; 96375; 96368; 51701; 96361; 96365; 99285; 36415; 95816; 93005; 93306; 97530; 97162; 97535; 97166; 84207; 84439; 88305; 82747; 80053; 80048 ×2; 85652 ×2; 84443; 82607; 82140; 82550; 84132; 84484; 85025 ×2; 85027; 85610; 85730; 86140 ×2; 81001; 88342; 87040; 87324; 80306; 80329; 80143; 80320; 83516 ×4; 87086; 87045; 87329; 87328; 87046; 83036; 84145; 87635; 73630; 71046; 93880; 72129; 72126; 72132; 70450; 74177; 70553; 72158; 45380; 43239; G0378 ×4; J3411 ×3; J3480 ×4; J2001; J0696 ×4; J2704; A9585; Q9967